=== PATIENT | male | born 1945 | race Caucasian/White ===

== ENCOUNTER → 2017-03-12 | Outpatient (CLI) | payer MEDICARE, OTHER | END | disposition home or self-care (01) | LOC: CFH 08:30 | PROVIDERS: ATTEND Physician Assistant | DX: R51 Headache (principal); Z13.220 Encounter for screening for lipoid disorders; Z12.5 Encounter for screening for malignant neoplasm of prostate; Z12.11 Encounter for screening for malignant neoplasm of colon; R53.83 Other fatigue; E55.9 Vitamin D deficiency, unspecified; N40.0 Benign prostatic hyperplasia without lower urinary tract symptoms; E78.2 Mixed hyperlipidemia; R93.1 Abnormal findings on diagnostic imaging of heart and coronary circulation; G89.29 Other chronic pain; I10 Essential (primary) hypertension; R01.1 Cardiac murmur, unspecified; F51.01 Primary insomnia; K21.9 Gastro-esophageal reflux disease without esophagitis | CPT/HCPCS: 70450 ==

== ENCOUNTER → 2017-08-06 | Outpatient (CLI) | payer MEDICARE, OTHER | END | disposition home or self-care (01) | LOC: CFH 06:41 | PROVIDERS: ATTEND Physician Assistant | DX: M75.121 Complete rotator cuff tear or rupture of right shoulder, not specified as traumatic (principal); S46.912A Strain of unspecified muscle, fascia and tendon at shoulder and upper arm level, left arm, initial encounter; X58.XXXA Exposure to other specified factors, initial encounter; Y93.89 Activity, other specified; Y92.89 Other specified places as the place of occurrence of the external cause; Y99.8 Other external cause status ==

== ENCOUNTER 2018-05-11 11:44 | Day surgery (SDC) | payer MEDICARE, OTHER ==
[2018-05-08 12:26] LABS: ALANINE AMINOTRANSFERASE 31 U/L (12-78); ALBUMIN 3.9 g/dL (3.4-5.0); ANION GAP 7 mmol/L (5-15); CALCIUM 8.9 mg/dL (8.5-10.1); CHLORIDE 107 mmol/L (98-107)
[2018-05-08 12:29] LABS: ALKALINE PHOSPHATASE 59 U/L (45-117); BILIRUBIN,TOTAL 0.5 mg/dL (0.2-1.0); CREATININE 0.98 mg/dL (0.7-1.3); TOTAL PROTEIN 7.4 g/dL (6.4-8.2)
[~2018-05-11] VITALS: Ht 180.3 cm; Wt 83.6 kg
[~2018-05-11 11:44] MED LIST: ALFU10TA PO; AMLO5TAB7 PO; ASPI-650 PO; BUPIVACAINE/PF-EPI 0.5% 1:200K ONE; CHOL200024 PO; FINA5TAB4 PO; FOSI10TA PO; GLUC15006 PO; HYDR25TA6 PO; ZOLP10TA5 PO
[2018-05-11 12:20] VITALS: BP 127/81
[2018-05-11] MEDS ORDERED: LACTATED RINGERS 1,000 ML IV SCH (12:22)
[2018-05-11] MEDS ORDERED: ONDANSETRON ODT 8 MG PO ONE (12:30)
[2018-05-11] MEDS ORDERED: ACETAMINOPHEN 500 MG TABLET PO ONE (12:30)
[2018-05-11] MEDS: GABAPENTIN 300 MG CAPSULE PO ONE ×2 (12:30→12:38)
[2018-05-11] MEDS ORDERED: MIDAZOLAM 1 MG/ML, 2ML ONE (14:55)
[2018-05-11] MEDS ORDERED: FENTANYL PF 250 MCG/5ML ONE (14:55)
[2018-05-11] MEDS ORDERED: KETOROLAC 30 MG/1 ML ONE (15:26)
[2018-05-11] MEDS ORDERED: LIDOCAINE-MPF 2% ,5ML ONE (15:26)
[2018-05-11] MEDS ORDERED: hydrALAzine 20 MG/ML, 1ML IV PRN (16:00)
[2018-05-11] MEDS ORDERED: FENTANYL PF 100 MCG/2ML IV PRN (16:00)
[2018-05-11] MEDS ORDERED: MIDAZOLAM 1 MG/ML, 2ML IV PRN (16:00)
[2018-05-11] MEDS ORDERED: ALBUTEROL/IPRATROPIUM 2.5MG/0.5MG, 3 ML NPPB PRN (16:00)
[2018-05-11] MEDS ORDERED: PROMETHAZINE 25 MG SUPP PR PRN (16:00)
[2018-05-11] MEDS ORDERED: LABETALOL 5MG/ML, 20ML IV PRN (16:00)
[2018-05-11] MEDS ORDERED: ONDANSETRON 2MG/ML, 2ML IV PRN (16:00)
[2018-05-11] MEDS ORDERED: OXYcodone 5 MG/5 ML ORAL.SOL UDC PO PRN (16:00)
[2018-05-11] MEDS ORDERED: MEPERIDINE/PF 25MG/0.5ML IVPush PRN (16:00)
[2018-05-11] MEDS ORDERED: SCOPOLAMINE PATCH, 1.5MG PATCH.TD72 TD PRN (16:00)
[2018-05-11] MEDS ORDERED: HYDROmorphone 1 MG/ML, 1ML IV PRN (16:00)
[2018-05-11] MEDS ORDERED: CEFAZOLIN 1,000 MG ONE (16:17)
[2018-05-11] MEDS ORDERED: DEXAMETHASONE 4 MG/ML, 1ML ONE (16:17)
[2018-05-11] MEDS ORDERED: PROPOFOL 10 MG/ML, 20ML ONE (16:17)
[2018-05-11] MEDS ORDERED: FENTANYL PF 100 MCG/2ML ONE (16:37)
[2018-05-11] MEDS ORDERED: OXYcodone 5 MG/5 ML ORAL.SOL UDC ONE (16:37)
[2018-05-11] MEDS ORDERED: HYDROcodone/APAP 5/325 TABLET PO PRN (17:30)
[2018-05-11] MEDS ORDERED: ONDANSETRON 2MG/ML, 2ML IVPush PRN (17:30)
[2018-05-11] MEDS ORDERED: ZOLPIDEM 10MG TABLET PO SCH (21:00)
[2018-05-12] MEDS ORDERED: ASPIRIN 325 MG TABLET EC PO SCH (06:00)
[2018-05-12] MEDS ORDERED: HYDROCHLOROTHIAZIDE 25 MG TABLET PO SCH (09:00)
[2018-05-12] MEDS ORDERED: CHOLECALCIFEROL 1,000 UNIT TABLET PO SCH (09:00)
[2018-05-12] MEDS ORDERED: FOSINOPRIL 20MG TABLET PO SCH (09:00)
[2018-05-12] MEDS ORDERED: AMLODIPINE 5 MG TABLET PO SCH (09:00)
[2018-05-13] MEDS ORDERED: FINASTERIDE 5 MG TABLET PO SCH (09:00)
== END 2018-05-11 18:46 | disposition home or self-care (01) ==
LOC: OUT 11:44 → 4NOR 17:18 → OUT 18:46
PROVIDERS: ATTEND Surgery
DX: K40.90 Unilateral inguinal hernia, without obstruction or gangrene, not specified as recurrent (principal); N40.0 Benign prostatic hyperplasia without lower urinary tract symptoms; I10 Essential (primary) hypertension; Z87.891 Personal history of nicotine dependence; Z79.899 Other long term (current) drug therapy; Z98.890 Other specified postprocedural states
CPT/HCPCS: 36415; 49505; 80053; 93005; C1781; J0690; J1100; J1885; J2250; J2704; J3010; J3490; J7120; Q0162; G0378

== ENCOUNTER → 2020-06-14 | Outpatient (CLI) | payer MEDICARE, OTHER ==
[~2020-06-14] MED LIST changes: +AMLO-150 PO; -AMLO5TAB7 PO; -BUPIVACAINE/PF-EPI 0.5% 1:200K ONE; -FOSI10TA PO; +FOSI10TA2 PO
== END | disposition home or self-care (01) ==
LOC: CFH 14:44
PROVIDERS: ATTEND Internal Medicine
DX: K57.30 Diverticulosis of large intestine without perforation or abscess without bleeding (principal); K44.9 Diaphragmatic hernia without obstruction or gangrene; N20.0 Calculus of kidney; N28.1 Cyst of kidney, acquired; M51.36 Other intervertebral disc degeneration, lumbar region
CPT/HCPCS: 74176